=== PATIENT | male | born 1990 | race African-American/Black ===

== ENCOUNTER → 2019-04-01 | Outpatient (CLI) | payer SELFPAY ==
--- NOTE | 2019-04-01 14:40 | Diagnostic Imaging Report ---
Chest, 2 views, 04/01/2019. Right rib series, 2 views. History: Right chest wall pain. Comparison: None available. Findings: The cardiomediastinal silhouette and pulmonary vasculature are within normal limits. The lungs are clear without evidence of consolidation or pleural effusion. There is no rib abnormality. There are no acute osseous or soft tissue abnormalities. Impression: No acute cardiopulmonary abnormality. Normal right rib series. Signed by: Rudi Vincent on 04/01/2019 2:37 PM
== END ==
LOC: RAD 13:13
PROVIDERS: ATTEND Internal Medicine
DX: R07.89 Other chest pain (principal)
CPT/HCPCS: 71046; 71101